=== PATIENT | male | born 1960 | race Caucasian/White ===

== ENCOUNTER 2022-03-17 06:51 | Day surgery (SDC) | payer OTHER ==
[2022-03-13 13:44] VITALS: BMI 25.0
[2022-03-17] MEDS ORDERED: PROPOFOL 40 ML ONE (07:28)
[2022-03-17] MEDS ORDERED: PROPOFOL 20 ML ONE (10:48)
== END 2022-03-17 11:30 | disposition home or self-care (01) ==
LOC: CSHSDC 06:51
PROVIDERS: ATTEND Internal Medicine Gastroenterology
PROC: 0DBK8ZX Excision of Ascending Colon, Via Natural or Artificial Opening Endoscopic, Diagnostic (ICD-10-PCS; principal; 2022-03-17)
DX: Z12.11 Encounter for screening for malignant neoplasm of colon (principal); K63.5 Polyp of colon; K57.30 Diverticulosis of large intestine without perforation or abscess without bleeding; K64.9 Unspecified hemorrhoids; Z86.010 Personal history of colon polyps; Z80.0 Family history of malignant neoplasm of digestive organs; K21.9 Gastro-esophageal reflux disease without esophagitis; F32.A Depression, unspecified; F41.9 Anxiety disorder, unspecified; Z98.890 Other specified postprocedural states; Z79.899 Other long term (current) drug therapy
CPT/HCPCS: 88305; J2704